=== PATIENT | female | born 1960 | race Caucasian/White ===

== ENCOUNTER 2022-07-03 11:12 | Emergency (ER) | payer BC, SELFPAY ==
--- NOTE | ~2022-07-03 | XR_ITS ---
EXAMINATION: XR foot RT min 3V DATE: 07/03/2022 11:56 INDICATION: Right foot pain across the metatarsals. Fall. TECHNIQUE: 4 views of right foot were obtained. COMPARISON: None. FINDINGS: Bone alignment is normal. No fracture. There is mild osteoarthritis of first metatarsophala ngeal joint. There is severe osteoarthritis of medial naviculocuneiform joint and mild osteoarthritis of intermediate naviculocuneiform joint. There are enthesophytes at the posterior and plantar aspect s of calcaneal tuberosity. IMPRESSION: 1. Polyarticular osteoarthritis. Reviewed, dictated and finalized at location A.
--- NOTE | ~2022-07-03 | XR_ITS ---
EXAMINATION: XR foot LT min 3V DATE: 07/03/2022 11:56 INDICATION: Left foot pain across the metatarsals. Fall. TECHNIQUE: 4 views of left foot were obtained. COMPARISON: None. FINDINGS: Bone alignment is normal. There is a nondisplaced extra-articular oblique fracture of fifth proximal phalanx. There is severe osteoarthritis of medial naviculocuneiform joint and moderate oste oarthritis of intermediate the naviculocuneiform joint. There is mild osteoarthritis of second distal interphalangeal joint. There is an enthesophyte at plantar aspect of calcaneal tuberosity. IMPRESSION: 1. Nondisplaced extra-articular oblique fracture of fifth proximal phalanx. 2. Polyarticular osteoarthritis. Reviewed, dictated and finalized at location A.
[2022-07-03 11:30] VITALS: BP 126/72; PULSE 77; RESP 16; TEMP 36.2; O2SAT 100
--- NOTE | 2022-07-03 11:59 | ED.LOWEXIN ---
HPI - Extremity Injury (Lower) General Chief Complaint: Extremity Injury, Lower Stated Complaint: Feet Pain Time Seen by Provider: 07/03/22 11:35 Source: patient Mode of arrival: ambulatory Limitations: no limitations History of Present Illness HPI Narrative: Mirtha is a 62-year-old female patient presenting to the clinic today with complaints of bilateral foot pain. She reports she fell down approximately 2 steps yesterday and landed on her knees with her feet behind her on the steps. She is complaining about pain, swelling, and bruising to the distal metatarsals. Related Data Home Medications Medication Instructions Recorded Confirmed clonazepam 1 mg tablet 1 mg DIRECTED 07/03/22 07/03/22 conj estrogen-medroxyprogesterone 1 tablet DIRECTED 07/03/22 07/03/22 0.45 mg-1.5 mg tablet (Prempro) diltiazem HCl 180 mg 180 mg PO DIRECTED 07/03/22 07/03/22 capsule,extended release 24 hr, controlled (DILT-XR) duloxetine 60 mg capsule,delayed 60 mg PO DIRECTED 07/03/22 07/03/22 release fenofibrate nanocrystallized 145 145 mg PO DIRECTED 07/03/22 07/03/22 mg tablet losartan 100 mg tablet 100 mg DIRECTED 07/03/22 07/03/22 omeprazole 40 mg capsule,delayed 40 mg DIRECTED 07/03/22 07/03/22 release pregabalin 300 mg capsule 300 mg DIRECTED 07/03/22 07/03/22 Allergies Allergy/AdvReac Type Severity Reaction Status Date / Time No Known Allergies Allergy Verified 07/03/22 11:31 Review of Systems Review of Systems: Pertinent positives per HPI. Patient denies any fever, chills, rash, headache, visual changes, dizziness, cough, runny nose, sore throat, shortness of breath, chest pain, palpitations, nausea, vomiting, diarrhea, constipation, abdominal pain, or any urinary issues. PMFSH Comments At the time of my signature, I reviewed and agree with the nursing past medical, surgical, social, and family history. There is no relevant family history pertinent to the patient complaint. Exam Narrative: General: Well-developed, well nourished, in no apparent distress Head: Normocephalic, atraumatic. Cardio: Regular rate and rhythm, s1 and s2 normal, no murmur appreciated. Resp: Clear to auscultation bilaterally, no rhonchi, rales, wheezing or rubs. Musculoskeletal: No deformity, bruising and swelling noted to the distal metatarsals, bruising noted to the right metatarsal great toe, bruising noted to the left 5th toe, tender to palpation over the distal metatarsals bilaterally and the left 5th toe, range of motion of the toes limited due to swelling, muscle strength strong and equal, peripheral pulse strong, no cyanosis, normal gait and station Course Course Emergency Course: Portions of this record may have been created with voice recognition software. Level of Care: Express Care Visit Vital Signs Vital signs: Vital Signs Temperature 36.2 C L 07/03/22 11:30 Pulse Rate 77 07/03/22 11:30 Respiratory Rate 16 07/03/22 11:30 Blood Pressure 126/72 07/03/22 11:30 Pulse Oximetry 100 07/03/22 11:30 Oxygen Delivery Room Air 07/03/22 11:30 Temperature 36.2 C L 07/03/22 11:30 Pulse Rate 77 07/03/22 11:30 Respiratory Rate 16 07/03/22 11:30 Blood Pressure 126/72 07/03/22 11:30 Pulse Oximetry 100 07/03/22 11:30 Oxygen Delivery Room Air 07/03/22 11:30 Vital signs reviewed MDM - Extremity Injury (Lower) MDM Narrative Medical decision making narrative: At the time of visit patient is resting comfortably on exam table. X-rays were performed of bilateral feet. X-ray shows a left 5th proximal nondisplaced toe fracture otherwise she has osteoarthritis and bilateral feet. Supportive measures were discussed with the patient she voiced understanding discharge instructions agrees to treatment plan. Differential Diagnosis Differential diagnosis: Likely fracture of toe and other (Foot fracture, soft tissue injury, contusion, osteoarthritis) Imaging Data Radiologist's imp
== END 2022-07-03 12:18 | disposition home or self-care (01) ==
PROVIDERS: Emergency Provider Nurse Practitioner Family; PCP Internal Medicine
DX: S92.515A Nondisplaced fracture of proximal phalanx of left lesser toe(s), initial encounter for closed fracture (principal); M19.071 Primary osteoarthritis, right ankle and foot; M19.072 Primary osteoarthritis, left ankle and foot; S90.121A Contusion of right lesser toe(s) without damage to nail, initial encounter; W10.9XXA Fall (on) (from) unspecified stairs and steps, initial encounter
CPT/HCPCS: 73630; 99204; G0463

== ENCOUNTER 2023-08-15 15:09 | Outpatient (CLI) | payer OTHER, SELFPAY ==
--- NOTE | ~2023-08-15 | MM_ITS ---
EXAMINATION: MM screening abilio BI w fina HISTORY: Screening mammogram TECHNIQUE: Craniocaudal and mediolateral oblique 3-D tomosynthesis images were obtained and synthetic 2-D images were generated. CAD analysis was submitted and interpreted. COMPARISON: No prior mammogram is available for comparison at this institution. BREAST PARENCHYMAL COMPOSITION: There are scattered areas of fibroglandular density. FINDINGS: There is no evidence of suspicious mass, calcification, or architectural distortion to sugg est malignancy in either breast. IMPRESSION: 1. No mammographic evidence of malignancy. 2. Recommend routine screening mammography in one year. BI-RADS Category 1: Negative Reviewed, dictated and finalized at location B.
== END 2023-08-15 15:10 ==
PROVIDERS: PCP Internal Medicine; Visit Provider Obstetrics & Gynecology Gynecology
DX: Z12.31 Encounter for screening mammogram for malignant neoplasm of breast (principal)
CPT/HCPCS: 77063; 77067

== ENCOUNTER 2024-10-15 13:53 | Outpatient (CLI) | payer MEDICARE, SELFPAY ==
--- NOTE | ~2024-10-15 | MM_ITS ---
EXAMINATION: MM screening abilio BI w fina HISTORY: Screening mammogram TECHNIQUE: Craniocaudal and mediolateral oblique 3-D tomosynthesis images were obtained and synthetic 2-D images were generated. CAD analysis was submitted and interpreted. COMPARISON: 08/15/2023 BREAST PARENCHYMAL COMPOSITION:Dense: The breasts are extremely dense, which lowers the sensitivity o f mammography. FINDINGS: No suspicious mass, calcification, or architectural distortion are identified in either giselle ast to suggest malignancy. There has been no suspicious interval change. IMPRESSION: No mammographic evidence of malignancy. Recommend routine screening mammography in one year. BI-RADS Category 1: Negative Reviewed, dictated and finalized at location .
== END 2024-10-15 13:54 | disposition home or self-care (01) ==
LOC: MICIMG 13:56
PROVIDERS: PCP Internal Medicine; Visit Provider Obstetrics & Gynecology Gynecology
DX: Z12.31 Encounter for screening mammogram for malignant neoplasm of breast (principal)
CPT/HCPCS: 77063; 77067